=== PATIENT | male | born 1985 | race Caucasian/White ===

== ENCOUNTER → 2017-01-28 | Outpatient (CLI) | payer BC | END | disposition home or self-care (01) | LOC: GMAB 10:02 | PROVIDERS: ATTEND Family Medicine | DX: Z00.01 Encounter for general adult medical examination with abnormal findings (principal); E07.9 Disorder of thyroid, unspecified ==

== ENCOUNTER → 2018-05-29 | Outpatient (CLI) | payer BC | LOC: GMATM 18:22 | PROVIDERS: ATTEND Nurse Practitioner Family | DX: E29.9 Testicular dysfunction, unspecified (principal) ==

== ENCOUNTER → 2019-09-20 | Outpatient (CLI) | payer BC | LOC: GMAE 11:37 | PROVIDERS: ATTEND Family Medicine | DX: Z00.00 Encounter for general adult medical examination without abnormal findings (principal) ==